=== PATIENT | female | born 1965 | race Caucasian/White ===

== ENCOUNTER 2025-04-03 06:19 | Day surgery (SDC) | payer OTHER ==
[2025-04-02 09:31] VITALS: BMI 28.7
[2025-04-03 08:58] VITALS: TEMP 97.6
[2025-04-03 09:29] VITALS: BP 110/68; PULSE 80; RESP 18
== END 2025-04-03 09:44 | disposition home or self-care (01) ==
LOC: JASU-ENDO 06:19
PROVIDERS: ATTEND Internal Medicine Gastroenterology
PROC: 0DB98ZX Excision of Duodenum, Via Natural or Artificial Opening Endoscopic, Diagnostic (ICD-10-PCS; 2025-04-03)
PROC: 0DB78ZX Excision of Stomach, Pylorus, Via Natural or Artificial Opening Endoscopic, Diagnostic (ICD-10-PCS; 2025-04-03)
PROC: 0DB68ZX Excision of Stomach, Via Natural or Artificial Opening Endoscopic, Diagnostic (ICD-10-PCS; 2025-04-03)
PROC: 0DB18ZX Excision of Upper Esophagus, Via Natural or Artificial Opening Endoscopic, Diagnostic (ICD-10-PCS; 2025-04-03)
PROC: 0DB28ZX Excision of Middle Esophagus, Via Natural or Artificial Opening Endoscopic, Diagnostic (ICD-10-PCS; 2025-04-03)
PROC: 0DJD8ZZ Inspection of Lower Intestinal Tract, Via Natural or Artificial Opening Endoscopic (ICD-10-PCS; principal; 2025-04-03 08:00)
DX: Z12.11 Encounter for screening for malignant neoplasm of colon (principal); K29.50 Unspecified chronic gastritis without bleeding; K20.80 Other esophagitis without bleeding; K64.8 Other hemorrhoids; Z86.0100 Personal history of colon polyps, unspecified; Z13.810 Encounter for screening for upper gastrointestinal disorder
CPT/HCPCS: 88305-TC; 88342-TC